=== PATIENT | female | born 1985 | race Caucasian/White ===

== ENCOUNTER 2017-07-27 05:54 | Observation (INO) | payer SELFPAY ==
[2017-07-27] MEDS ORDERED: ONDANSETRON 4 MG/2 ML VIAL ONE (06:35)
[2017-07-27] MEDS ORDERED: LORazepam 2 MG/ML VIAL ONE ×2 (06:35→08:12)
[2017-07-27] MEDS ORDERED: MORPHINE 4 MG/ML SYR ONE ×2 (06:35→08:12)
[2017-07-27] MEDS ORDERED: DIPHENHYDRAMINE 50 MG/ML VIAL ONE (06:36)
[2017-07-27] MEDS ORDERED: NA CHLORIDE 0.9% 1,000 ML ONE (06:36)
[2017-07-27 06:51] LABS: Absolute Lymphocytes (CBC) 3.7 K/uL (0.7-4.9); Absolute Monocytes 1.2 K/uL (0.1-1.3); Absolute Neutrophil 9.8 K/uL (1.8-8.0); Basophils % 0.5 % (0-1.3); Eosinophils % 2.1 % (0-4.4); Lymphocytes % 24.4 % (15.3-44.8); MCH 28.6 pg (27.0-35.0); MCV 84.7 fL (80-100); MPV 8.9 fL (7.6-11.3); Monocytes % 7.7 % (3.3-12.3); RBC Red Blood Cell Count 4.84 M/uL (3.86-4.86)
[2017-07-27 07:00] LABS: Bicarbonate 25 mEq/L (21-31); Glucose Level 112 mg/dL (65-120); Potassium 3.4 mEq/L (3.6-5.0); Sodium Level 136 mEq/L (135-145)
[2017-07-27 07:03] LABS: BUN Blood Urea Nitrogen 9 mg/dL (6-20); Creatine Phosphokinase 82 IU/L (22-269)
--- NOTE | 2017-07-27 08:19 | ER ---
Nurse's Notes [facility] Name: Kalli Christensen Age: 32 yrs Sex: Female : 1985 Arrival Date: 07/27/2017 Time: 05:57 Bed 6 Private MD: Diagnosis: Toxic effect of venom of black spider, accidental (unintentional) Presentation: 07/27 06:06 Presenting complaint: Patient states: I think I got bit by a black and the bite tl2 seems to be spreading and I'm aching all over. Denies fever or vomiting. Was seen at [facility] at 1900 and 0400 and discharged. Transition of care: patient was not received from another setting of care. Onset of symptoms was July 26, 2017 at 19:00. Risk Assessment: Do you want to hurt yourself or someone else? Patient reports no desire to harm self or others. Initial Sepsis Screen: Does the patient meet any 2 criteria? No. Patient's initial sepsis screen is negative. Does the patient have a suspected source of infection? No. Patient's initial sepsis screen is negative. Care prior to arrival: None. 06:06 Method Of Arrival: Ambulatory tl2 06:06 Acuity: DAVIS 3 tl2 Triage Assessment: 06:11 Bite description: bite sustained to right breast is from insect was sustained 6-12 tl2 hours ago. by a spider, animal information: vaccination(s) is not applicable. General: Appears in no apparent distress. uncomfortable, Behavior is calm, cooperative, appropriate for age. Pain: Complains of pain in right breast Pain does not radiate. Pain currently is 9 out of 10 on a pain scale. Neuro: Level of Consciousness is awake, alert, obeys commands, Oriented to person, place, time, situation. Cardiovascular: Denies chest pain. Respiratory: Airway is patent Respiratory effort is even, unlabored, Respiratory pattern is regular, symmetrical. GI: No signs and/or symptoms were reported involving the gastrointestinal system. : No signs and/or symptoms were reported regarding the genitourinary system. Derm: Skin is pink, warm \T\ dry. Historical: - Allergies: 06:11 No Known Allergies; tl2 - Home Meds: 06:11 None [Active]; tl2 - PMHx: 06:11 None; tl2 - PSHx: 06:11 ; tl2 - Immunization history:: Adult Immunizations up to date, Last tetanus immunization: up to date. - Social history:: Smoking status: Patient/guardian denies using tobacco. - Ebola Screening: : No symptoms or risks identified at this time. Screenin:13 Abuse screen: Denies threats or abuse. Nutritional screening: No deficits noted. tl2 Tuberculosis screening: No symptoms or risk factors identified. Fall Risk None identified. Assessment: 06:13 General: see triage assessment. tl2 07:05 Reassessment: Patient appears in no apparent distress at this time. Patient and/or ph family updated on plan of care and expected duration. Pain level reassessed. Patient is alert, oriented x 3, equal unlabored respirations, skin warm/dry/pink. 08:15 Reassessment: Patient appears in no apparent distress at this time. Patient and/or ph family updated on plan of care and expected duration. Pain level reassessed. Patient is alert, oriented x 3, equal unlabored respirations, skin warm/dry/pink. Pt resting quietly, reports pain in back, legs, and hips 6/10, ERP notified, see MAR. 10:00 Reassessment: Patient appears in no apparent distress at this time. Patient and/or ph family updated on plan of care and expected duration. Pain level reassessed. Patient is alert, oriented x 3, equal unlabored respirations, skin warm/dry/pink. Pt reports that pain has improved to 4/10, denies nausea, awaiting room assignment. 11:28 Reassessment: Patient appears in no apparent distress at this time. Patient and/or ph family updated on plan of care and expected duration. Pain level reassessed. Patient is alert, oriented x 3, equal unlabored respirations, skin warm/dry/pink. Pt ambulated to restroom, gait steady, waiting to be taken to inpatient room. Vital Signs: 06:11 BP 172 / 106; Pulse 78; Resp 18; Temp 98.2(O); Pulse Ox 99% on R/A; Weight 113.4 kg; tl2 Height 5 ft. 7 in. (170.18 cm); Pain 9/10; 06:48 BP 136 / 85; Pulse 54; Resp 16; Pulse Ox 97% on R/A; Pain 0/10; ak1 07:50 BP 126 / 89; Pulse 56; Resp 18; Pulse Ox 98% on R/A; ph 09:30 BP 120 / 87; Pulse 58; Resp 18; Temp 97.9; Pulse Ox 99% on R/A; ph 11:18 BP 132 / 93; Pulse 62; Resp 18; Temp 97.9; Pulse Ox 99% on R/A; ph 06:11 Body Mass Index 39.16 (113.40 kg, 170.18 cm) tl2 ED Course: 05:57 Patient arrived in ED. tl2 06:10 Triage completed. tl2 06:11 Arya Castro PA is PHCP. jr8 06:11 Vargas Lua MD is Attending Physician. jr8 06:11 Arm band placed on right wrist. tl2 06:13 Patient has correct armband on for positive identification. Placed in gown. Bed in low tl2 position. Call light in reach. Side rails up X 1. 06:37 Inserted saline lock: 20 gauge in right antecubital area, using aseptic technique. cr4 07:49 Shayy Rivas, RN is Primary Nurse. ph 08:18 Monster Schulte MD is Hospitalizing Provider. jr8 11:17 No provider procedures requiring assistance completed. Patient admitted, IV remains in ph place. Administered Medications: 06:46 Drug: NS 0.9% 1000 ml Route: IV; Rate: 125 ml/hr; Site: right antecubital; ak1 11:30 Follow up: Response: No adverse reaction; IV Status: Completed infusion ph 06:47 Drug: morphine 4 mg Route: IVP; Site: right antecubital; ak1 06:48 Follow up: Response: No adverse reaction ak1 06:47 Drug: Zofran 4 mg Route: IVP; Site: right antecubital; ak1 06:48 Follow up: Response: No adverse reaction ak1 06:47 Drug: Benadryl 25 mg Route: IVP; Site: right antecubital; ak1 06:48 Follow up: Response: No adverse reaction ak1 06:47 Drug: Ativan 1 mg Route: IVP; Site: right antecubital; ak1 06:47 Follow up: Response: No adverse reaction ak1 08:26 Drug: Ativan 1 mg Route: IVP; Site: right antecubital; ph 11:30 Follow up: Response: No adverse reaction ph 08:26 Drug: morphine 2 mg Route: IVP; Site: right antecubital; ph 11:30 Follow up: Response: No adverse reaction; Pain is decreased ph Outcome: 08:19 Decision to Hospitalize by Provider. jrMagalys 11:17 Admitted to Med/surg accompanied by tech, via wheelchair, room 215, with chart. ph 11:17 Condition: stable 11:17 Instructed on the need for admit. 11:31 Patient left the ED. ph Signatures: Lisa Curtis, RN RN cr4 Arya Castro PA PA jr8 Bette Frye RN RN ak1 Shayy Rivas RN RN ph Knox, Taylor RN RN tl2 Corrections: (The following items were deleted from the chart) 11:30 11:30 Response: No adverse reaction ph ph
--- NOTE | 2017-07-27 08:19 | EDPHYS ---
Physician Documentation [facility] Name: Kalli Christensen Age: 32 yrs Sex: Female : 1985 Arrival Date: 07/27/2017 Time: 05:57 Bed 6 Private MD: ED Physician Vargas Lua HPI: 07/27 08:12 This 32 yrs old Female presents to ER via Ambulatory with complaints of jr8 Insect Bite. 08:12 Patient bit by suspected black last night. Had gone to [place] and had tetanus jr8 updated and was discharged home. Patient stated that she is having bilateral breast pain, back pain, cramping, aching, and lower leg pain bilaterally . Onset: The symptoms/episode began/occurred acutely, last night. Severity of symptoms: At their worst the symptoms were moderate in the emergency department the symptoms are unchanged. The patient has not experienced similar symptoms in the past. The patient has not recently seen a physician. Historical: - Allergies: 06:11 No Known Allergies; tl2 - Home Meds: 06:11 None [Active]; tl2 - PMHx: 06:11 None; tl2 - PSHx: 06:11 ; tl2 - Immunization history:: Adult Immunizations up to date, Last tetanus immunization: up to date. - Social history:: Smoking status: Patient/guardian denies using tobacco. - Ebola Screening: : No symptoms or risks identified at this time. ROS: 08:12 Eyes: Negative for injury, pain, redness, and discharge, ENT: Negative for injury, jr8 pain, and discharge, Neck: Negative for injury, pain, and swelling, Cardiovascular: Negative for chest pain, palpitations, and edema, Respiratory: Negative for shortness of breath, cough, wheezing, and pleuritic chest pain, Abdomen/GI: Negative for abdominal pain, nausea, vomiting, diarrhea, and constipation, Neuro: Negative for headache, weakness, numbness, tingling, and seizure. 08:12 Back: Positive for pain at rest. 08:12 MS/extremity: Positive for pain. 08:12 Skin: Positive for lesions. Exam: 08:12 Head/Face: Normocephalic, atraumatic. Eyes: Pupils equal round and reactive to light, jr8 extra-ocular motions intact. Lids and lashes normal. Conjunctiva and sclera are non-icteric and not injected. Cornea within normal limits. Periorbital areas with no swelling, redness, or edema. ENT: Nares patent. No nasal discharge, no septal abnormalities noted. Tympanic membranes are normal and external auditory canals are clear. Oropharynx with no redness, swelling, or masses, exudates, or evidence of obstruction, uvula midline. Mucous membranes moist. Neck: Trachea midline, no thyromegaly or masses palpated, and no cervical lymphadenopathy. Supple, full range of motion without nuchal rigidity, or vertebral point tenderness. No Meningismus. Cardiovascular: Regular rate and rhythm with a normal S1 and S2. No gallops, murmurs, or rubs. Normal PMI, no JVD. No pulse deficits. 08:12 Respiratory: Lungs have equal breath sounds bilaterally, clear to auscultation and percussion. No rales, rhonchi or wheezes noted. No increased work of breathing, no retractions or nasal flaring. Abdomen/GI: Soft, non-tender, with normal bowel sounds. No distension or tympany. No guarding or rebound. No evidence of tenderness throughout. Skin: Warm, dry with normal turgor. Normal color with no rashes, no lesions, and no evidence of cellulitis. MS/ Extremity: Pulses equal, no cyanosis. Neurovascular intact. Full, normal range of motion. Neuro: Awake and alert, GCS 15, oriented to person, place, time, and situation. Cranial nerves II-XII grossly intact. Motor strength 5/5 in all extremities. Sensory grossly intact. Cerebellar exam normal. Normal gait. 08:12 Chest/axilla: Inspection: Target lesion noted where spider bit her on right medial breast, Palpation: tenderness, is not appreciated, Breasts: are normal, symmetrical shape, Lymph nodes: lymphadenopathy is not appreciated. 08:12 Back: pain, that is moderate, of the low back area, ROM is normal, normal spinal alignment noted. Vital Signs: 06:11 BP 172 / 106; Pulse 78; Resp 18; Temp 98.2(O); Pulse Ox 99% on R/A; Weight 113.4 kg; tl2 Height 5 ft. 7 in. (170.18 cm); Pain 9/10; 06:48 BP 136 / 85; Pulse 54; Resp 16; Pulse Ox 97% on R/A; Pain 0/10; ak1 07:50 BP 126 / 89; Pulse 56; Resp 18; Pulse Ox 98% on R/A; ph 09:30 BP 120 / 87; Pulse 58; Resp 18; Temp 97.9; Pulse Ox 99% on R/A; ph 11:18 BP 132 / 93; Pulse 62; Resp 18; Temp 97.9; Pulse Ox 99% on R/A; ph 06:11 Body Mass Index 39.16 (113.40 kg, 170.18 cm) tl2 MDM: 06:11 Patient medically screened. jr8 08:12 Data reviewed: vital signs, nurses notes, lab test result(s), EKG, and as a result, I jr8 will admit patient. Data interpreted: Pulse oximetry: on room air is 98 %. Interpretation: normal. Counseling: I had a detailed discussion with the patient and/or guardian regarding: the historical points, exam findings, and any diagnostic results supporting the discharge/admit diagnosis, lab results, the need for further work-up and treatment in the hospital. 08:19 ED course: Patient had brought spider in for us to look at. Spider has characteristics jr8 that match a northern black spider. Characteristic target lesion noted on right breast. Vitals stable. Likely mild envenomation. Will observe overnight to insure she remains stable . 07/27 06:26 Order name: CBC with Diff; Complete Time: 06:56 07/27 06:26 Order name: Basic Metabolic Panel; Complete Time: 07:49 07/27 06:26 Order name: CK; Complete Time: 07:49 [facility] 07/27 06:44 Order name: Urine Dipstick--Ancillary (enter results); Complete Time: 08:40 mi 07/27 06:26 Order name: Urine Test (obtain specimen); Complete Time: 06:40 07/27 06:26 Order name: Urine Dipstick-Ancillary (obtain specimen); Complete Time: 06:40 07/27 06:26 Order name: IV; Complete Time: 06:38 07/27 08:18 Order name: EKG - Nurse/Tech; Complete Time: 08:26 Administered Medications: 06:46 Drug: NS 0.9% 1000 ml Route: IV; Rate: 125 ml/hr; Site: right antecubital; ak1 11:30 Follow up: Response: No adverse reaction; IV Status: Completed infusion ph 06:47 Drug: morphine 4 mg Route: IVP; Site: right antecubital; ak1 06:48 Follow up: Response: No adverse reaction ak1 06:47 Drug: Zofran 4 mg Route: IVP; Site: right antecubital; ak1 06:48 Follow up: Response: No adverse reaction ak1 06:47 Drug: Benadryl 25 mg Route: IVP; Site: right antecubital; ak1 06:48 Follow up: Response: No adverse reaction ak1 06:47 Drug: Ativan 1 mg Route: IVP; Site: right antecubital; ak1 06:47 Follow up: Response: No adverse reaction ak1 08:26 Drug: Ativan 1 mg Route: IVP; Site: right antecubital; ph 11:30 Follow up: Response: No adverse reaction ph 08:26 Drug: morphine 2 mg Route: IVP; Site: right antecubital; ph 11:30 Follow up: Response: No adverse reaction; Pain is decreased ph Disposition: 07/27/17 08:19 Hospitalization ordered by Monster Schulte for Observation. Preliminary diagnosis is Toxic effect of venom of black spider, accidental (unintentional). - Bed requested for Telemetry/MedSurg (observation). - Status is Observation. ph - Condition is Stable. - Problem is new. - Symptoms have improved. UTI on Admission? No Addendum: 07/29/2017 10:16 Co-signature as Attending Physician, Vargas Lua MD I agree with the assessment and w a plan of care. Signatures: Dispatcher [employer] EDMS Arya Castro PA PA jr8 Bette Frye RN RN ak1 Shayy Rivas RN RN ph Knox, Taylor, RN RN tl2 Madiha Esteban RN RN df Appiah, William, MD MD wa Corrections: (The following items were deleted from the chart) 07/27 09:55 08:19 Hospitalization Ordered by Monster Schulte MD for Observation. Preliminary df diagnosis is Toxic effect of venom of black spider, accidental (unintentional). Bed requested for Telemetry/MedSurg (observation). Status is Observation. Condition is Stable. Problem is new. Symptoms have improved. UTI on Admission? No. jr8 11:31 09:55 07/27/2017 08:19 Hospitalization Ordered by Monster Schulte MD for Observation. ph Preliminary diagnosis is Toxic effect of venom of black spider, accidental (unintentional). Bed requested for Telemetry/MedSurg (observation). Status is Observation. Condition is Stable. Problem is new. Symptoms have improved. UTI on Admission? No. df
[2017-07-27 08:38] LABS: Urine Blood NEGATIVE (NEG); Urine Glucose NEGATIVE (NEG); Urine Protein TRACE (NEG)
[2017-07-27] MEDS ORDERED: ONDANSETRON 4 MG (ODT) TAB PO PRN (09:04)
[2017-07-27] MEDS ORDERED: TETANUS & DIPHTHERIA TOX,ADULT 0.5 ML VIAL IMVAC ONE (09:05)
[2017-07-27] MEDS ORDERED: NAPROXEN 250 MG TAB PO PRN (09:06)
[2017-07-27] MEDS: SMZ./TMP. 800/160 MG TABLET PO SCH ×3 (09:07→22:08)
--- NOTE | 2017-07-27 09:13 | P.HP ---
Certification for Inpatient With expected LOS: <2 Midnights Patient will require the following post-hospital care: None Practitioner: I am a practitioner with admitting privileges, knowledge of patient current condition, hospital course, and medical plan of care. Services: Services provided to patient in accordance with Admission requirements found in Title 42 Section 412.3 of the Code of Federal Regulations Patient History Date of Service: 07/27/17 Reason for admission: Spider bite History of Present Illness: The patient is 32 years of age admitted following a spider bright to the right breast she got bit last night when to the history Emergency room twice and was discharged came here to the hospital complaining of feeling achy pain and the right breast ride that leg and hip pack muscle spasms was had difficulty standing up that generally weak and was admitted to the hospital the tenderness in's swelling and erythema on the right breast at increase the since is the last bite no prior medical problems she feels more comfortable now vital signs are stable Review of Systems 10-point ROS is otherwise unremarkable Physical Examination - Vital Signs Temperature: 98.2 F Blood Pressure: 126/89 Pulse: 56 Pulse Ox (%): 98 - Physical Exam General: Alert, Oriented x3 HEENT: Atraumatic Neck: Supple Respiratory: Clear to auscultation bilaterally Cardiovascular: No edema, Regular rate/rhythm Gastrointestinal: Normal bowel sounds Integumentary: Other (She is a area for redness in the right upper quadrant off the a right upper breast mild tenderness) - Studies Laboratory Data (last 24 hrs) 07/27/17 06:34: Sodium 136, Potassium 3.4 L, BUN 9, Creatinine 0.74, Glucose 112 07/27/17 06:34: WBC 15.0 H, Hgb 13.8, Hct 41.0, Plt Count 270 Assessment and Plan - Problems (Diagnosis) (1) Spider bite Current Visit: Yes Status: Acute Plan: Patient is 32 years of age admitted to the hospital complaining of generalized aching muscle spasms discomfort following a spider bite to her right breast currently doing well hemodynamically stable he would be into the emergency room twice its we knee and was discharged labs reviewed white count is mildly elevated she is mildly hypokalemic plan is to admit her for observation pain control start her on oral Bactrim tetanus prophylaxis possible discharge tomorrow Qualifiers: Encounter type: initial encounter - Advance Directives Does patient have a Living Will: No Does patient have a Durable POA for Healthcare: No
[2017-07-27 12:28] VITALS: BMI 40.5
[2017-07-27] MEDS: LORAZEPAM 1 MG TABLET PO PRN ×2 (12:35→18:22)
[2017-07-27] MEDS: HYDROCODONE/APAP 5/325 MG TAB PO PRN ×3 (12:35→22:08)
[2017-07-28 02:40] VITALS: O2SAT 100
[2017-07-28] MEDS: HYDROCODONE/APAP 5/325 MG TAB PO PRN (08:09)
[2017-07-28] MEDS: SMZ./TMP. 800/160 MG TABLET PO SCH (08:09)
--- NOTE | 2017-07-28 09:12 | EKG ---
Test Date: 2017-07-27 Test Time: 08:25:24 Branch Operations Coordinator: JANNET MEASUREMENT RESULTS: Intervals: Rate: 54 IN: 166 QRSD: 112 QT: 466 QTc: 441 She[place]on: P: 32 IN: 166 QRS: 35 T: -4 INTERPRETIVE STATEMENTS: Sinus bradycardia with premature atrial complexes Incomplete right bundle branch block Nonspecific T wave abnormality Abnormal ECG No previous ECG available for comparison Electronically Signed On 07-28-17 09:12:18 CDT by Ahsan Page
[2017-07-28 09:55] VITALS: BP 163/65; TEMP 98.2
--- NOTE | 2017-07-28 10:27 | P.DS ---
Admission Date: 07/27/17 Discharge Date: 07/28/17 Disposition: ROUTINE DISCHARGE Discharge Condition: FAIR Reason for Admission: Spider bite - Problems (1) Spider bite Current Visit: Yes Status: Acute Qualifiers: Encounter type: initial encounter Brief History of Present Illness: The patient is 32 years of age admitted following a spider bright to the right breast she got bit last night when to the history Emergency room twice and was discharged came here to the hospital complaining of feeling achy pain and the right breast ride that leg and hip pack muscle spasms was had difficulty standing up that generally weak and was admitted to the hospital the tenderness in's swelling and erythema on the right breast at increase the since is the last bite no prior medical problems she feels more comfortable now vital signs are stable Hospital Course: Patient was admitted for observation did well no new problems . Patient id not experience any more spasms on examination she is alert oriented responsive cooperative vital signs all stable patient continues to remain afebrile Right breast lesion looks significantly better there is no is about 1 cm redness which is improved patient to be discharged home Vital Signs/Physical Exam: Temp Pulse Resp BP Pulse Ox 98.2 F 65 16 163/65 H 100 07/28/17 08:00 07/28/17 08:00 07/28/17 08:00 07/28/17 08:00 07/28/17 08:00 Laboratory Data at Discharge: WBC 15.0 K/uL (4.3-10.9) H 07/27/17 06:34 Hgb 13.8 g/dL (12.0-15.0) 07/27/17 06:34 Hct 41.0 % (36.0-45.0) 07/27/17 06:34 Plt Count 270 K/uL (152-406) 07/27/17 06:34 Sodium 136 mEq/L (135-145) 07/27/17 06:34 Potassium 3.4 mEq/L (3.6-5.0) L 07/27/17 06:34 BUN 9 mg/dL (6-20) 07/27/17 06:34 Creatinine 0.74 mg/dL (0.44-1.00) 07/27/17 06:34 Glucose 112 mg/dL (65-120) 07/27/17 06:34 Home Medications: NK [No Home Meds] 07/27/17 Patient Discharge Instructions: Patient did take over the counter nonsteroidals or Tylenol Diet: Regular Activity: Ad naya
== END 2017-07-28 11:13 | disposition home or self-care (01) ==
LOC: ER 05:54 → ERHOLD 08:39 → 2ND 11:21
PROVIDERS: ADMIT Internal Medicine Sleep Medicine; ATTEND Internal Medicine Sleep Medicine
DX: T63.301A Toxic effect of unspecified spider venom, accidental (unintentional), initial encounter (principal); L53.0 Toxic erythema; Y92.019 Unspecified place in single-family (private) house as the place of occurrence of the external cause
CPT/HCPCS: 36415; 80048; 81003; 82550; 85025; 93005; 96361; 96374; 96375; 99285; G0378; J2405; J7030

== ENCOUNTER 2024-09-29 16:07 | Emergency (ER) | payer OTHER ==
[2024-09-29] MEDS ORDERED: DIPHENHYDRAMINE 50 MG/ML VIAL ONE (18:21)
[2024-09-29] MEDS ORDERED: METHYLPREDNISOLONE 125 MG INJ ONE (18:21)
--- NOTE | 2024-09-29 18:59 | RAD REPORT ---
EXAM: Soft Tissue Neck W/Contr INDICATION: choked Sagittal and coronal reformations were generated. This exam was performed according to our department al dose-optimization program, which includes automated exposure control, adjustment of the mA and/or kV according to patient size and/or use of iterative reconstruction technique. IV contrast was administered. COMPARISON: None. FINDINGS: Mucosal spaces: Nasopharynx, oropharynx, oral cavity, larynx and hypopharynx are normal. No suspiciou s masses are identified. Epiglottis is normal in configuration. True vocal cords cords are normally situated. Piriform sinuses are well-aerated. Lymph Nodes: Lymph node evaluation is limited due to non-contrast technique. No gross pathologic appe aring cervical lymph nodes. Salivary Glands: Unremarkable. Thyroid Gland: Normal Included Intracranial Structures: Grossly unremarkable. Included Orbits: Normal Paranasal Sinuses: Predominantly clear Tympanomastoid Cavities: Normal Vascular Structures: Normal Osseous Structures: No acute osseous abnormality. Included Lung Apices: Normal IMPRESSION: No acute process identified.
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
[2024-09-29 23:20] VITALS: TEMP 98.3
[2024-09-29 23:25] VITALS: BP 142/96; O2SAT 98
== END 2024-09-29 19:18 | disposition home or self-care (01) ==
LOC: ER 16:07
DX: S10.93XA Contusion of unspecified part of neck, initial encounter (principal); T71.9XXA Asphyxiation due to unspecified cause, initial encounter
CPT/HCPCS: 81025; 70491; 96375; 96374; 99284; Q9967; J1200; J2919